=== PATIENT | female | born 1995 | race Caucasian/White ===

== ENCOUNTER 2022-04-01 17:22 | Emergency (ER) | payer OTHER ==
[2022-04-01 17:36] VITALS: BP 137/79; PULSE 91; RESP 17; TEMP 99; BMI 31.8
== END 2022-04-01 19:13 | disposition home or self-care (01) ==
LOC: JER 17:22 → JERFT 17:22
DX: S92.901A Unspecified fracture of right foot, initial encounter for closed fracture (principal)
CPT/HCPCS: 73610-TC-RT-FY; 73630-TC-RT-FY; 99284-25